=== PATIENT | male | born 1990 | race Caucasian/White ===

== ENCOUNTER 2016-07-24 20:44 | Emergency (ER) | payer MEDICAID ==
[2016-07-24 20:45] VITALS: BMI 22.7
[2016-07-24 20:50] VITALS: BP 159/83; PULSE 102; RESP 16; TEMP 97.9; O2SAT 100
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
== END 2016-07-24 21:31 | disposition home or self-care (01) ==
LOC: H.ER 20:44
DX: F43.20 Adjustment disorder, unspecified (principal); Z88.0 Allergy status to penicillin